=== PATIENT | female | born 1965 | race Hispanic/Latino ===

== ENCOUNTER 2016-06-06 12:10 | Day surgery (SDC) | payer OTHER ==
[~2016-06-06] VITALS: Ht 147.3 cm; Wt 80.7 kg
[2016-06-06] VITALS (9 sets, daily range): BP systolic 109–154; BP diastolic 55–70; PULSE 62–78; RESP 14–17; O2SAT 95–100
--- NOTE | 2016-06-06 06:48 | PCM.HPANE ---
Patient Data Surgeon Admitting Provider: Attending Provider:Rajan Cardoza MD Primary Care Physician:Ciarra Bolden MD Other Provider:Florinda Coxingham Anesthesia Reason for Visit Postmenopausal, Labial Cyst, Cervial Polyp Ht/WT & BMI Height (Feet): 4 Height (Inches): 9.00 Weight (Kilograms): 81.640 Body Mass Index 38.00 Allergies Coded Allergies: No Known Allergies (Verified Allergy, Unknown, 06/06/16) Past Anesthesia History Anesthesia History: Denies:: Anesthesia Reactions, Fam Anesthesia Reaction Diabetes History Hx Diabetes?: No MRSA MRSA: No Medications Hypertension Medication: Yes Home Meds Incl Beta Lesvia: Yes (propranolol) Active Scripts Hydrocodone-Acetaminophen 5-325 mg 1 Each Tablet1 Tablet PO Q4H PRN For Pain # 10 TABLET Ref 0 Prov:Parish Cooley 10/31/15 Reported Medications Dextrose/Fructose/Sodium Cit (Nauzene Tablet Chew)1 Each Tab.chew1 Each PO DAILY 06/05/16 Biotin 5,000 Mcg Tab.rapdis5,000 Mcg PO DAILY 06/05/16 Sennosides (Senna)8.6 Mg Tablet8.6 Mg PO PRN For Constipation 06/05/16 Bran/Gum/Fib/Neha/Psyl/Kelp/Pec (Fiber 6 Tablet)1,000 Mg Tablet1,000 Mg PO DAILY 06/05/16 [womens vitafusion] No Conflict Check1 Tab-Cap Q2DAY 06/05/16 Calcium Carbonate/Vitamin D3 (Calcium 500 mg Chewable Tablet)1 Each Tab.chew1 Each PO DAILY 06/05/16 Glucosam/Chond/Hyalu/Cf Borate (Move Free Joint Health Tablet)750 Mg-100 Mg- 1.65 Mg-108 Mg Tablet1 Each PO DAILY 06/05/16 Ranitidine 150 Mg Jabgjzj112 Mg PO BID Ref 0 06/05/16 Meloxicam 15 Mg Yzqurq69 Mg PO DAILY 30 Days Ref 0 06/05/16 Metformin 500 Mg Twoiyj869 Mg PO BID Ref 0 06/05/16 Methocarbamol 500 Mg Nansjk158 Mg PO Q6H PRN For Pain 06/05/16 Propranolol HCl 10 Mg Lijgvi61 Mg PO TID 90 Days Ref 0 06/05/16 hydrOXYzine Hcl (HydrOXYzine Hcl)25 Mg Nlcqra46 Mg PO TID PRN For Anxiety Ref 0 06/05/16 Citalopram 20 Mg Rqlhae13 Mg PO DAILY Ref 0 06/05/16 Hydrochlorothiazide 25 Mg Kisenq01 Mg PO DAILY 30 Days Ref 0 06/05/16 Lisinopril 40 Mg Dkhkio45 Mg PO DAILY 30 Days Ref 0 06/05/16 History History of ENT Problems?: No Hx of Heart Problems?: Yes Cardiovascular History: Positive for:: Cardiac Surgery (per H+P- Ventricular Septal defect repair at age 16) Hypertension Denies:: AICD Congestive Heart Failure Heart Murmur Irregular Heartbeat Pacemaker Hx of Respiratory Problem?: Yes Respiratory History: Positive for:: Chest Surgery (VSD repair) Denies:: Oxygen Administration Tuberculosis Use of C-PAP Machine Hx Neurologic Problems?: No Neurological History: Denies:: CVA Dizziness Multiple Sclerosis Parkinson's Disease Seizures Hx of GI Problems?: No Gastrointestinal History: Denies:: Cirrhosis Gastroesphageal Reflux Gastrointestinal Bleeding Hepatitis Hx of Problems?: No Female Hx: Denies:: Currently (hx tubal) Skin History: Denies:: History Skin Disorders? Pressure Ulcers Hx Musculoskeletal Problems?: No Musculoskeletal History: Denies:: Fibromyalgia Joint Replacement Musculoskeletal Trauma Myasthenia Gravis Osteoarthritis Hx of Psycho/Social Problems?: Yes Psycho Social History: Positive for:: Hx Depression Hx Surgeries?: Yes (VSD, tubal ligation) Hx Any Other Health Problems?: Yes Other History: Denies:: Cancer Thyroid Disease Hx Diabetes: No Hx Alcohol Use: NoHx Substance Use: No Smoking Status: Never Smoker Have You Smoked inLast 12 mo: No Stop/Bang P-Blood Pressure: treated: Yes B- Body Mass Index > 35 kg/m2: Yes A- Age over 50: Yes N- Neck Large Circumference: Yes G- Gender Male: No Risk Assessment Category Category 1A: Patient has history of documented sleep apnea, and HAS NOT received any narcotic, sedative or anesthesia administration during this stay. Category 1B: Patient has history of documented sleep apnea, and HAS received any narcotic , sedative or anesthesia administration during this stay Category 2: Patient has SUSPECTED Obstructive Sleep Apnea, and HAS received any narcotic , sedative or anesthesia administration during this stay. Category 3: Patient has SUSPECTED Obstructive Sleep Apnea and HAS NOT received narcotic, sedative or anesthesia administration during this stay. Category 4: Outpatient in Procedural Areas with known sleep apnea or who screen positive for High Risk via the STOP/BANG questionnaire. Plan Impression Patient chart reviewed, patient interviewed and anesthestic plan with risks, benefits, and alternatives discussed, and informed consent obtained. Other case care transferred to Montrell Wellington MD Jun 06, 2016 06:48
[~2016-06-06 12:10] MED LIST: BIOT5000 PO; CALC-952 PO; CITA20TA11 PO; DEXT1TAB PO; FIBE1TAB4 PO; GLUC-210 PO; HYDR-4003 PO; HYDR-656 PO; HYDR25TA4 PO; LISI40TA PO; Lactated Ringer's 1,000 ML IV SCH; MELO-253 PO; METF500T4 PO; PROP10TA8 PO; RANI150C4 PO; ROB500 PO; SENN-133 PO; WOMENS VITAFUSION
[2016-06-06] MEDS ORDERED: Propofol 10,000 mCg/mL 20 mL Inj ONE (12:11)
[2016-06-06] MEDS ORDERED: Ondansetron 2 mg/mL 2 mL Inj ONE (12:11)
[2016-06-06] MEDS ORDERED: MetoCLOpramide 5 mg/mL 2 mL Inj ONE (12:11)
[2016-06-06] MEDS: Lactated Ringer's 1,000 ML IV SCH ×2 (12:18→13:00)
[2016-06-06] MEDS ORDERED: MetoCLOpramide 5 mg/mL 2 mL Inj IVPUSH PRN ×2 (13:15→14:45)
[2016-06-06] MEDS ORDERED: HYDROmorphone 1 mg/mL Inj IVPUSH PRN (13:15)
[2016-06-06] MEDS ORDERED: Lactated Ringer's 1,000 ML IV SCH (13:15)
[2016-06-06] MEDS ORDERED: fentaNYL-PF 50 mCg/mL 2 mL Inj IVPUSH PRN (13:15)
[2016-06-06] MEDS ORDERED: Dexamethasone 4 mg/mL Inj IVPUSH PRN (13:15)
[2016-06-06] MEDS ORDERED: Lactated Ringer's 500 ML IV PRN (13:15)
[2016-06-06] MEDS ORDERED: Ondansetron 2 mg/mL 2 mL Inj IVPUSH PRN ×2 (13:15→14:45)
[2016-06-06] MEDS ORDERED: Phenylephrine 10,000 mCg/mL Inj IVPUSH PRN (13:15)
[2016-06-06] MEDS ORDERED: EPHEDrine Sulfate 50 mg/mL Inj IVPUSH PRN (13:15)
--- NOTE | 2016-06-06 13:15 | PCM.HPANE ---
Patient Data Surgeon Admitting Provider: Attending Provider:Rajan Cardoza MD Primary Care Physician:Ciarra Bolden MD Other Provider:Florinda Coxingham Anesthesia Reason for Visit Postmenopausal, Labial Cyst, Cervial Polyp Ht/WT & BMI Height (Feet): 4 Height (Inches): 10 Weight (Kilograms): 80.7 Body Mass Index 37.00 Allergies Coded Allergies: No Known Allergies (Verified Allergy, Unknown, 06/06/16) Past Anesthesia History Anesthesia History: Denies:: Anesthesia Reactions, Fam Anesthesia Reaction Diabetes History Hx Diabetes?: Yes MRSA MRSA: No Medications Hypertension Medication: Yes Home Meds Incl Beta Lesvia: Yes Active Scripts Hydrocodone-Acetaminophen 5-325 mg 1 Each Tablet1 Tablet PO Q4H PRN For Pain # 10 TABLET Ref 0 Prov:Parish Cooley 10/31/15 Reported Medications Dextrose/Fructose/Sodium Cit (Nauzene Tablet Chew)1 Each Tab.chew1 Each PO DAILY 06/05/16 Biotin 5,000 Mcg Tab.rapdis5,000 Mcg PO DAILY 06/05/16 Sennosides (Senna)8.6 Mg Tablet8.6 Mg PO PRN For Constipation 06/05/16 Bran/Gum/Fib/Neha/Psyl/Kelp/Pec (Fiber 6 Tablet)1,000 Mg Tablet1,000 Mg PO DAILY 06/05/16 [womens vitafusion] No Conflict Check1 Tab-Cap Q2DAY 06/05/16 Calcium Carbonate/Vitamin D3 (Calcium 500 mg Chewable Tablet)1 Each Tab.chew1 Each PO DAILY 06/05/16 Glucosam/Chond/Hyalu/Cf Borate (Move Free Joint Health Tablet)750 Mg-100 Mg- 1.65 Mg-108 Mg Tablet1 Each PO DAILY 06/05/16 Ranitidine 150 Mg Qqqnors497 Mg PO BID Ref 0 06/05/16 Meloxicam 15 Mg Mdlybe19 Mg PO DAILY 30 Days Ref 0 06/05/16 Metformin 500 Mg Gogspk655 Mg PO BID Ref 0 06/05/16 Methocarbamol 500 Mg Pjorkw508 Mg PO Q6H PRN For Pain 06/05/16 Propranolol HCl 10 Mg Inpjih05 Mg PO TID 90 Days Ref 0 06/05/16 hydrOXYzine Hcl (HydrOXYzine Hcl)25 Mg Oukqrq95 Mg PO TID PRN For Anxiety Ref 0 06/05/16 Citalopram 20 Mg Ecdgvf41 Mg PO DAILY Ref 0 06/05/16 Hydrochlorothiazide 25 Mg Ahqnyj97 Mg PO DAILY 30 Days Ref 0 06/05/16 Lisinopril 40 Mg Prihpp39 Mg PO DAILY 30 Days Ref 0 06/05/16 History History of ENT Problems?: No Denture Type: Partial- Upper Hx of Heart Problems?: Yes Cardiovascular History: Positive for:: Cardiac Surgery (per H+P- Ventricular Septal defect repair at age 16) Hypertension Denies:: AICD Congestive Heart Failure Heart Murmur Irregular Heartbeat Pacemaker Hx of Respiratory Problem?: Yes Respiratory History: Positive for:: Chest Surgery (VSD repair) Denies:: Oxygen Administration Tuberculosis Use of C-PAP Machine Hx Neurologic Problems?: No Neurological History: Denies:: CVA Dizziness Multiple Sclerosis Parkinson's Disease Seizures Hx of GI Problems?: No Gastrointestinal History: Denies:: Cirrhosis Gastroesphageal Reflux Gastrointestinal Bleeding Hepatitis Hx of Problems?: No Female Hx: Denies:: Currently Skin History: Denies:: History Skin Disorders? Pressure Ulcers Hx Musculoskeletal Problems?: No Musculoskeletal History: Denies:: Fibromyalgia Joint Replacement Musculoskeletal Trauma Myasthenia Gravis Osteoarthritis Hx of Psycho/Social Problems?: Yes Psycho Social History: Positive for:: Hx Depression Hx Surgeries?: Yes (VSD, tubal ligation) Hx Any Other Health Problems?: Yes Other History: Denies:: Cancer Thyroid Disease Hx Diabetes: Yes Hx Alcohol Use: NoHx Substance Use: No Smoking Status: Never Smoker Have You Smoked inLast 12 mo: No Stop/Bang Treated for Sleep Apnea?: No Do You Have a CPAP Machine?: No P-Blood Pressure: treated: Yes B- Body Mass Index > 35 kg/m2: Yes A- Age over 50: Yes N- Neck Large Circumference: Yes G- Gender Male: No MARILEE Risk Assessment: High Risk, =/>3 Yes Risk Assessment Category Category 1A: Patient has history of documented sleep apnea, and HAS NOT received any narcotic, sedative or anesthesia administration during this stay. Category 1B: Patient has history of documented sleep apnea, and HAS received any narcotic , sedative or anesthesia administration during this stay Category 2: Patient has SUSPECTED Obstructive Sleep Apnea, and HAS received any narcotic , sedative or anesthesia administration during this stay. Category 3: Patient has SUSPECTED Obstructive Sleep Apnea and HAS NOT received narcotic, sedative or anesthesia administration during this stay. Category 4: Outpatient in Procedural Areas with known sleep apnea or who screen positive for High Risk via the STOP/BANG questionnaire. Exam Exam Vital Signs Vital Signs Date Time Temp Pulse Resp B/P Pulse Ox O2 Delivery O2 Flow Rate FiO2 06/06/16 12:38 CPAP/BIPAP 06/06/16 12:34 36.1 66 16 129/60 95 Room Air General Appearance: Oriented X3 HEENT/AIRWAY: MP 2 Lungs: Normal Air Movement Heart: Regular Rate/Rhythm Meds/Labs/Diagnostics Admission Meds Current Medications Lactated Ringer's (Lr) 1,000 ml @ 120 mls/hr Q8H20M IV Last administered on t 12:18; Start 06/06/16 at 05:00; Stop 06/06/16 at 13:19 Plan Impression Patient chart reviewed, patient interviewed and anesthestic plan with risks, benefits, and alternatives discussed, and informed consent obtained. NPO Status: 06/05 1800 ASA Physical Status: ASA2 Mod Systemic Disease Anesthetic Plan: GA Bene/Risks/Altern/Consents: Yes HP Complete Prior to Induction: Yes Noé Camara MD Jun 06, 2016 13:15
[2016-06-06] MEDS ORDERED: Lidocaine 1%-Epi 1:100,000 20 mL Inj INFILTRATE ONE (14:00)
[2016-06-06] MEDS ORDERED: oxyCODONE-Acetamin 5-325 mg Tablet PO PRN (14:45)
[2016-06-06] MEDS ORDERED: diphenhydrAMINE 25 mg Capsule PO PRN (14:45)
--- NOTE | 2016-06-06 22:53 | OP ---
[address] [address] OPERATIVE REPORT PATIENT: TENNILLE GOULD : 1965 MR#: [id number] ADMIT: 06/06/2016 JOB ID: [id number] DATE OF SURGERY: 06/06/2016 PREOPERATIVE DIAGNOSIS(ES): A 51-year-old, 4, para 4, with postmenopausal bleeding, cervical polyps and right labial cystic lesion. POSTOPERATIVE DIAGNOSIS(ES): A 51-year-old, 4, para 4, with postmenopausal bleeding, cervical polyps and right labial cystic lesion. PROCEDURE: 1- Hysteroscopy, D and C, 2- MyoSure excision of endometrial polyp, 3-excision of cervical polyps x2, 4- excision of right labial cystic lesion. SURGEON: Rajan Cardoza MD. DUPLICATE MAKER: None. ANESTHESIA: General endotracheal. ESTIMATED BLOOD LOSS: 30 cc. INTRAVENOUS FLUIDS: 500 cc of crystalloid. COMPLICATIONS: None. HYSTEROSCOPY DISTENTION MEDIA: Normal saline with a deficit of 160 cc at the end of the procedure. PACKS: None. DRAINS: None. CATHETERS: In-and-out catheter in the beginning of the procedure with clear urine obtained. FINDINGS: Examination under anesthesia revealed no adnexal masses appreciated bilaterally. Retroverted uterus. Operative findings: The uterus was sounded to 9 cm. Hysteroscopic findings: No masses. No fibroids observed. There was one small endometrial polyp around 1 x1 cm originating from the anterior endometrium close to the right tubal ostia. There was also a fibrous band pedunculated from the anterior mid-endometrium. *Two cervical polyps a few millimeters each in size originating from the endocervical canal at three o'clock position. *Labial cystic mass 2 x 1 cm originating from the right labia majora mid position. PROCEDURE: Risks, benefits, alternatives of the procedure discussed with the patient. Informed consent signed. Patient was moved to the OR with IV running after general anesthesia was found to be adequate. Patient was examined under anesthesia with the above findings. She was then prepped and draped in the normal sterile fashion. Weighted speculum inserted into the patient's vagina. Anterior lip of the cervix grasped with a single-tooth tenaculum. Cervix dilated up to Hegar dilator #6. Uterine sound introduced. Uterus sounded to 9 cm. Then, the MyoSure scope was introduced into the patient's uterus with the above findings. Normal saline used for distention media. The hysteroscope was removed. Cervical curettage followed by endometrial curettage using sharp curette followed. The hysteroscope introduced again and showed that the previously noted endometrial polyp was still there, not removed by the curettage. So the MyoSure LITE device was introduced into the patient's uterus and under direct visualization the endometrial polyp was completely removed, as well as the fibrous band pedunculated from anterior endometrium. Both sent to pathology as separate specimen. Pictures taken. All instruments removed from patient's uterus. Then, attention was turned to cervical polyps. Both where grabbed with hemostat and with twisting movement both were delivered and sent as separate specimen. They were both noted to be originating from the endocervical canal at three o'clock position. Then, the single-tooth tenaculum was removed and the insertion site was noted to be bleeding. This was controlled with Monsel solution. Good hemostasis assured. All instruments removed from patient's vagina. Attention was then turned to the right labial cystic mass. It was grabbed with a sponge forceps and 2% lidocaine with epinephrine, around 3 cc, injected for local vasoconstriction. A scalpel used to incise the skin in a vertical fashion on both sides of the mass. Then, using Metzenbaum scissors with sharp and blunt dissection the mass noted to have no extension into the deep tissue of the labia majora and it was completely , sent to Pathology. Then, the labial incision was repaired with interrupted sutures of 4-0 Vicryl. Good hemostasis assured. The patient tolerated the procedure well. Sponge, needle and instrument counts were correct x2. The patient moved to recovery in a stable condition. Dr. Cardoza was present and scrubbed for the entire procedure. SYLVESTER
--- NOTE | 2016-06-10 12:24 | PATH ---
SURGICAL PATHOLOGY Attending Physician:Rajan Cardoza MD CASE STATUS: Signed Out PATIENT NAME: TENNILLE GOULD PID: [id number] : 1965 DATE COLLECTED:06/06/2016 00:00 SPECIMEN: 1: Endocervix, Curettage 2: Endometrium, Curettage 3: Cervix, Biopsy 4: Endometrium, Biopsy 5: Vulva, Biopsy CLINICAL HISTORY: CERVICAL POLYP, LABIAL CYST, POSTMENOPAUSAL 1). ENDOCERVICAL CURETTINGS 2). ENDOMETRIAL CURETTINGS 3). CERVICAL POLYPS 4). ENDOMETRIAL POLYPS 5). RIGHT VULVAR LESION FINAL DIAGNOSIS: 1.ENDOCERVICAL CURETTINGS: NO EVIDENCE OF INVASIVE NEOPLASM OR DYSPLASIA. 2.ENDOMETRIAL CURETTINGS: WEAKLY PROLIFERATIVE ENDOMETRIUM. NO EVIDENCE OF MALIGNANCY OR HYPERPLASIA. 3.CERVIX, POLYPS: ENDOCERVICAL POLYPS WITH CHRONIC ACTIVE INFLAMMATION. NO EVIDENCE OF MALIGNANCY OR DYSPLASIA. 4.ENDOMETRIAL POLYPS: ENDOMETRIAL POLYPS. FRAGMENTS OF MYOMETRIUM WITH ADENOMYOSIS. NO EVIDENCE OF MALIGNANCY OR HYPERPLASIA. 5.VULVA, BIOPSY: FIBROEPITHELIAL POLYP. NO EVIDENCE OF MALIGNANCY OR DYSPLASIA. ICD10 CODE N84 N84.1 GROSS DESCRIPTION: Received are five formalin-filled containers, each labeled with the patient's name. 1. Received in formalin and labeled with the patient's name and "endocervical" is a collection of nolan mucoid tissue fragments measuring 0.4 x 0.3 x 0.2 cm in aggregate. All fragment are totally submitted in 1A. 2. Received in formalin, labeled with the patient's name and "endometrial is a collection of nolan mucoid tissue fragments measuring 0.4 x 0.4 x 0.2 cm in aggregate. All fragments are totally submitted in cassette 2A. 3. Received in formalin, labeled with the patient's name and "cervical polyps" are two fragments of pink-nolan tissue ranging in size from 0.5 x 0.2 x 0.2 cm to 0.6 x 0.4 x 0.2 cm. The fragments are totally submitted in cassette 3A. 4. Received in formalin, labeled with the patient's name and "endometrial polyps" is a collection of harrison-nolan tissue fragments measuring 0.3 x 0.3 x 0.2 cm in aggregate. All fragments are totally submitted in cassette 4A. 5. Received in formalin, labeled with the patient's name and "R labial lesion" is one dark brown, wrinkly tissue fragment measuring 2.0 x 1.0 x 0.3 cm. The surgical margin is inked blue. The fragment is bisected and totally submitted in cassette 5A. ([id number]) MICRO DESCRIPTION: See diagnosis. ICD-9 CODES: CPT CODES: 1: 48871 2: 44922 3: 30947 4: 64966 5: 52178 Electronically Signed Out Beto Benitez MD [facility] [address], [place] [address] Technical component performed at [facility], [facility] [address], [place], [address]
== END 2016-06-06 23:59 | disposition home or self-care (01) ==
LOC: SAS 12:10
PROVIDERS: ATTEND Obstetrics & Gynecology
PROC: 0UDB8ZX Extraction of Endometrium, Via Natural or Artificial Opening Endoscopic, Diagnostic (ICD-10-PCS; principal; 2016-06-06 14:00)
DX: N95.0 Postmenopausal bleeding (principal); N84.1 Polyp of cervix uteri; N90.7 Vulvar cyst
CPT/HCPCS: 11422; 36415; 58558; 84132; 88305; J2405; J2765; J7120

== ENCOUNTER 2016-07-02 19:04 | Emergency (ER) | payer OTHER ==
[~2016-07-02] VITALS: Ht 144.8 cm; Wt 81.8 kg
[~2016-07-02 19:04] MED LIST changes: -Lactated Ringer's 1,000 ML IV SCH
[2016-07-02 19:12] VITALS: BP 154/83; PULSE 83; RESP 16; O2SAT 97
--- NOTE | 2016-07-02 20:13 | ED.REPORT ---
HPI-General Illness Date of Service Jul 02, 2016 ED Provider: Jj Starks DO A 51 year old female with a history of hypertension s/p ventricular septal defect repair presents to the ED with generalized myalgias onset three weeks ago. The patient also reports headache, sore throat, fatigue, chills, dizziness , malaise, and a non-productive cough. The patient denies other symptoms. She was seen by her PCP last week, placed on Keflex, and given an inhaler with no relief. Nursing Notes Stated Complaint: COUGH Chief Complaint: FLU/Cold Symptoms Nursing Notes Reviewed: Yes Allergies: Coded Allergies: No Known Allergies (Verified Allergy, Unknown, 06/06/16) Scheduled ([womens vitafusion]) 1 TAB-CAP Q2DAY Biotin (Biotin) 5,000 Mcg Tab.rapdis 5,000 MCG PO DAILY Bran/Gum/Fib/Neha/Psyl/Kelp/Pec (Fiber 6 Tablet) 1,000 Mg Tablet 1,000 MG PO DAILY Calcium Carbonate/Vitamin D3 (Calcium 500 mg Chewable Tablet) 1 Each Tab.chew 1 EACH PO DAILY Citalopram (Citalopram) 20 Mg Tablet 40 MG PO DAILY Dextrose/Fructose/Sodium Cit (Nauzene Tablet Chew) 1 Each Tab.chew 1 EACH PO DAILY Glucosam/Chond/Hyalu/Cf Borate (Move Free Joint Health Tablet) 750 Mg-100 Mg- 1.65 Mg-108 Mg Tablet 1 EACH PO DAILY Hydrochlorothiazide (Hydrochlorothiazide) 25 Mg Tablet 25 MG PO DAILY Lisinopril (Lisinopril) 40 Mg Tablet 40 MG PO DAILY Meloxicam (Meloxicam) 15 Mg Tablet 15 MG PO DAILY Metformin (Metformin) 500 Mg Tablet 500 MG PO BID Propranolol HCl (Propranolol HCl) 10 Mg Tablet 10 MG PO TID Ranitidine (Ranitidine) 150 Mg Capsule 150 MG PO BID Scheduled PRN Hydrocodone-Acetaminophen 5-325 mg (Hydrocodone-Acetaminophen 5-325 mg) 1 Each Tablet 1 TABLET PO Q4H PRN PRN For Pain Methocarbamol (Methocarbamol) 500 Mg Tablet 500 MG PO Q6H PRN PRN For Pain Sennosides (Senna) 8.6 Mg Tablet 8.6 MG PO PRN For Constipation hydrOXYzine Hcl (HydrOXYzine Hcl) 25 Mg Tablet 25 MG PO TID PRN PRN For Anxiety General Time Seen by MD: 20:12 Chief Complaint Other (Generalized Pain) Hx Obtained From: Patient Arrived By: Walk-in Sudden in Onset?: No Onset Occurred: More than a week ago... (3 weeks) Symptom Duration: Since onset Location: : Abdomen: Back: Chest: Head Quality: Painful Severity: Current: Moderate Severity: Maximum: Moderate Associated with: Reports: Cough, Dizziness, Headache, Denies: Fever Pertinent Negative: Relieved by nothing Context Related History: Reports Psychiatric history Recent Healthcare: Recent doctor visit Past Medical History Past Medical History Depression Hypertension Past Surgical History Ventricular septal defect repair (~1994) Reports: Tubal ligation Smoking History Never Smoker Social History Alcohol Use: Denies alcohol use Drug Use: Denies drug use Occupation lives with , no work or school Ambulatory Status Independent Review of Systems Full Review of Systems Constitutional: Reports: Chills, Fatigue, Malaise, Denies: Fever Ears / Nose / Throat: Reports: Sore throat Respiratory: Reports: Non-productive cough, Denies: Shortness of breath GI: Denies: Diarrhea, Vomiting Musculoskeletal: Reports: Myalgia (Generalized) Neurologic: Reports: Dizziness, Headache Complete sys rev & neg: except as marked. Physical Exam Vital Signs Vital Signs Date Time Temp Pulse Resp B/P Pulse Ox O2 Delivery O2 Flow Rate FiO2 07/03/16 00:48 92 24 137/74 97 Room Air 07/02/16 23:32 87 18 96 Room Air 07/02/16 21:03 83 22 94 Room Air 07/02/16 19:12 37.1 83 16 154/83 97 Room Air Initial VS: Reviewed Head / Eyes: Atraumatic, Normocephalic Neck: Supple, Full range of motion Cardiovascular: Regular rate & rhythm, Heart sounds normal Skin: Warm, Dry, No cyanosis Neurologic: Alert, Oriented, Nonfocal Psychiatric: Mood/affect normal, Behavior normal, Normal thought content General/Constitutional: Awake, Alert ENT: Airway patent, Mucous membranes moist Pharynx / Tonsils / Uvula: Positive: Pharyngeal erythema, Negative: Tonsillar swelling L, Tonsillar swelling R Respiratory / Chest: Breath sounds = bilat, No respiratory distress Wheezing / Retractions: Positive: Wheezing mild (Bilaterally) Coarse crackles bilaterally Interpretation & Diagnostics INFLUENZA NEGATIVE RAPID STREP NEGATIVE Lab Results Interpretation Result Diagram: 07/02/16211907/02/162119 Test 07/02/16 21:20 07/02/16 22:47 White Blood Count 14.0th/mm3 (3.8-10.1) Red Blood Count 4.25mil/mm3 (3.90-5.20) Hemoglobin 12.8g/dL (12.0-15.6) Hematocrit 37.4% (35.0-46.0) Mean Corpuscular Volume 88.0fL (81-100) Mean Corpuscular Hemoglobin 30.1pg (27.0-35.0) Mean Corpuscular Hemoglobin Concent 34.2% (32.0-37.0) Red Cell Distribution Width 12.8% (12.3-15.4) Platelet Count 359bil/L (150-400) Neutrophils (%) (Auto) 62.0% (40-74) Lymphocytes (%) (Auto) 26.8% (14-46) Monocytes (%) (Auto) 8.0% (4-12) Eosinophils (%) (Auto) 1.9% (0-5) Basophils (%) (Auto) 0.4% (0-3) Sodium Level 138mEq/L (134-144) Potassium Level 3.9mEq/L (3.5-5.2) Chloride Level 96mEq/L (97-108) Carbon Dioxide Level 22mmol/L (18-29) Blood Urea Nitrogen 12mg/dL (6-24) Creatinine 0.47mg/dL (0.57-1.00) Estimat Glomerular Filtration Rate 200mL/min (>59) Glucose Level 134mg/dL (60-99) Calcium Level 9.9mg/dL (8.5-10.1) Total Bilirubin 0.3mg/dL (0.0-1.2) Aspartate Amino Transf (AST/SGOT) 17U/L (0-50) Alanine Aminotransferase (ALT/SGPT) 20U/L (0-32) Alkaline Phosphatase 124U/L (25-150) Troponin T 0.010ug/L (0.0-0.011) Total Protein 7.9g/dL (6.4-8.4) Albumin 4.3g/dL (3.4-5.0) D-Dimer < 0.50mg/L FEU (<0.50) ECG Interpretation ECG Interpretation: Sinus rhythm rate 79 Probable left atrial enlargement Incomplete RBBB LVH Time: 21:06 Interpreted by: ED physician CBC Interpretation WBC elevated Cardiac / Vascular Lab Interp Cardiac markers normal X-Ray Chest Interpretation Chest Xray Interpretation: IMPRESSION: 1. No acute cardiopulmonary disease. Dictated by: Mickey Hein M.D. on 07/02/2016 at 22:20 View: AP & lat Interpretation / Wet Read by: Interpret - Radiologist Re-Eval/Medical Decision Med Decision/Clinical Course WA ruled out with troponin and considering she has had symptoms for several days. EKG is not changed from prior. Chest x-ray is reassuring. D-dimer is negative. Thor has bronchitis with bronchospasm and pharyngitis. She has been sick long enough that I will put her on a course of antibiotics. Course of steroids. Short course of pain medication and recommend close outpatient follow-up. Source of Hx: Old records Time of Eval: 00:05 Patient Status: Condition improved Re-Evaluation/Progress Note: Discussed with patient lab and x-ray results, diagnosis, and plan for discharge. Follow-up and return to the ER instructions given. Patient agrees with plan for care and all questions were addressed. Counseled Regarding: Diagnosis, Lab results, Need for follow-up, When/why to return to ED Discharge & Departure Primary Impression: Bronchitis Additional Impression: Pharyngitis Pharyngitis/tonsillitis etiology: unspecified etiology Qualified Code: J02.9 - Acute pharyngitis, unspecified Discharge Condition All VS Reviewed: Yes Condition: Improved Patient Instructions: Acute Bronchitis (ED), Pharyngitis (ED) Additional Instructions: Thank you for entrusting us with your care. Your x-ray and influenza swabs were normal. I believe you have bronchitis. Finish the [place] as directed. Prednisone daily for the next three days. 1-2 [place] every six hours as needed for cough-related pain. Do not drink alcohol, drive, or consume acetaminophen while taking [place]. Call [facility] tomorrow for a follow-up appointment. Return to the ER with any new or worsening symptoms. JAKE TRANSLATE Christopher por confiarnos bryson cuidado. Yudi hisopos de juaquin x y la gripe palomo normales. Creo que usted tiene bronquitis. Acabado el Z-[place] hussein se indica. Prednisona diariamente cheo los prximos teressa jewell. 1-2 [place] cada seis horas segn sea necesario para el dolor relacionado con la tos. No corrina alcohol, coche, o consumir acetaminofn teniendo [place]. [facility] maana tigre myra de seguimiento. Volver a la jung de urgencias con algn sntoma nuevo o que empeora. Referrals: Rajan Cardoza MD (PCP) Scribe Attestation Portions of this note were transcribed by Rose Bourgeois. I, Dr. Starks, personally performed the history, physical exam, and medical decision-making; I reviewed and confirmed the accuracy of the information in the transcribed note. Signed by: Mckay Mar, 07/03/2016, 00:57 copies to: Rajan Cardoza MD, Todd P DO Jul 02, 2016 20:13 ROSE BOURGEOIS Jul 02, 2016 20:34
[2016-07-02] MEDS ORDERED: Dexamethasone 10 mg/mL Inj IVPUSH ONE (20:45)
[2016-07-02] MEDS ORDERED: Albuterol-Ipratropium 3 mL Inhalation Solution NEB ONE ×2 (20:45→23:10)
[2016-07-02 21:03] VITALS: PULSE 83; RESP 22; O2SAT 94
[2016-07-02 21:32] LABS: BASOPHILS % (AUTO) 0.4 % (0-3); EOSINOPHILS % (AUTO) 1.9 % (0-5); Mean Corpuscular Hemoglobin 30.1 pg (27.0-35.0); Platelet Count 359 bil/L (150-400)
[2016-07-02 22:14] LABS: TROPONIN T 0.01 ug/L (0.0-0.011)
--- NOTE | 2016-07-02 22:23 | DRSVH ---
PROCEDURE: X-RAY CHEST, TWO VIEWS ([id number]) INDICATIONS: fever, chills, cough TECHNIQUE: 2 views of the chest were acquired. COMPARISON: [facility], , CHEST 1VW (PORTABLE), 07/03/2014, 0:09. FINDINGS: Surgical changes and devices: None. Lungs and pleura: No pleural effusions or pneumothorax. Lungs are clear. Mediastinum: There is a right-sided aortic arch redemonstrated. Heart size is normal. Bones and chest wall: No suspicious bony abnormalities. Soft tissues appear unremarkable. IMPRESSION: 1. No acute cardiopulmonary disease. Dictated by: Mickey Hein M.D. on 07/02/2016 at 22:20 Approved by: Mickey Hein M.D. on 07/02/2016 at 22:21
[2016-07-02] MEDS ORDERED: cefTRIAXone Inj 2,000 MG in Dextrose 5% Minibag Plus 50 ML IV ONE (22:25)
[2016-07-02 23:32] VITALS: PULSE 87; RESP 18; O2SAT 96
[2016-07-02] MEDS ORDERED: _HYDROcodone/APAP 5-325 mg Tablet PO PRN (23:50)
[2016-07-03 00:48] VITALS: BP 137/74; PULSE 92; RESP 24; O2SAT 97
== END 2016-07-03 00:48 ==
LOC: SED 19:04
DX: J40 Bronchitis, not specified as acute or chronic (principal); J02.9 Acute pharyngitis, unspecified; R53.81 Other malaise; R53.83 Other fatigue; R42 Dizziness and giddiness; I10 Essential (primary) hypertension; Z79.84 Long term (current) use of oral hypoglycemic drugs
CPT/HCPCS: 36415; 71020; 80053; 84484; 85025; 85378; 87804; 87880; 93005; 94640; 94664; 96365; 96375; 99285; J0696; J1100; J7620